=== PATIENT | female | born 1960 | race African-American/Black ===

== ENCOUNTER 2016-07-24 11:26 | Emergency (ER) | payer OTHER ==
[2016-07-24] MEDS ORDERED: Ibuprofen TAB* 800 MG PO ONE (12:22)
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
[2016-07-24 13:10] VITALS: BP 109/86
== END 2016-07-24 13:09 | disposition home or self-care (01) ==
LOC: ED 11:26
DX: J02.9 Acute pharyngitis, unspecified (principal); E11.9 Type 2 diabetes mellitus without complications; I10 Essential (primary) hypertension; E78.00 Pure hypercholesterolemia, unspecified; F17.200 Nicotine dependence, unspecified, uncomplicated
CPT/HCPCS: 87502; 87651; 99282

== ENCOUNTER 2017-07-05 08:26 | Emergency (ER) | payer OTHER ==
[2017-07-05 10:48] VITALS: BP 153/99
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
== END 2017-07-05 10:45 | disposition home or self-care (01) ==
LOC: ED 08:26
DX: J06.9 Acute upper respiratory infection, unspecified (principal); F17.200 Nicotine dependence, unspecified, uncomplicated; E11.9 Type 2 diabetes mellitus without complications; E78.00 Pure hypercholesterolemia, unspecified; I10 Essential (primary) hypertension
CPT/HCPCS: 87502; 87651; 99282

== ENCOUNTER 2019-07-16 11:31 | Emergency (ER) | payer OTHER ==
[2019-07-16 13:09] LABS: Influenza A Molecular Negative (Negative); Influenza B Molecular Negative (Negative)
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
[2019-07-16 13:53] VITALS: BP 143/102
== END 2019-07-16 13:52 | disposition home or self-care (01) ==
LOC: ED 11:31
DX: J32.9 Chronic sinusitis, unspecified (principal); E11.9 Type 2 diabetes mellitus without complications; E78.00 Pure hypercholesterolemia, unspecified; I10 Essential (primary) hypertension; F17.200 Nicotine dependence, unspecified, uncomplicated; Z79.84 Long term (current) use of oral hypoglycemic drugs; Z79.899 Other long term (current) drug therapy
CPT/HCPCS: 71046; 99282